=== PATIENT | male | born 1980 | race Caucasian/White ===

== ENCOUNTER 2020-10-03 10:24 | Emergency (ER) | payer BC | END 2020-10-03 12:44 | disposition home or self-care (01) | LOC: JVIRT 10:24 | DX: Z11.52 Encounter for screening for COVID-19 (principal) | CPT/HCPCS: C9803; G2251-GT; U0003 ==

== ENCOUNTER 2021-01-20 08:09 | Emergency (ER) | payer BC ==
[2021-01-20 08:23] VITALS: BP 125/94; PULSE 105; TEMP 98; BMI 33.0
[2021-01-20] MEDS ORDERED: DIPHTH,PERTUSS(ACELL),TET 0.5 ML DISP.SYRIN IM ONE ×2 (08:26→08:27)
== END 2021-01-20 08:45 | disposition home or self-care (01) ==
LOC: FER 08:09
PROC: 3E0234Z Introduction of Serum, Toxoid and Vaccine into Muscle, Percutaneous Approach (ICD-10-PCS; principal; 2021-01-20)
DX: S61.209A Unspecified open wound of unspecified finger without damage to nail, initial encounter (principal)
CPT/HCPCS: 90715; 99284-25

== ENCOUNTER 2021-03-16 11:17 | Emergency (ER) | payer BC ==
[2021-03-16 11:29] VITALS: BP 127/93; PULSE 108; TEMP 99; BMI 33.0
== END 2021-03-16 12:19 | disposition home or self-care (01) ==
LOC: FER 11:17
PROC: 0HQGXZZ Repair Left Hand Skin, External Approach (ICD-10-PCS; principal; 2021-03-16)
DX: S61.211A Laceration without foreign body of left index finger without damage to nail, initial encounter (principal)
CPT/HCPCS: 99282-25

== ENCOUNTER 2021-03-23 12:55 | Emergency (ER) | payer BC ==
[2021-03-23 13:17] VITALS: BP 122/80; PULSE 73; TEMP 98.8; BMI 32.7
== END 2021-03-23 13:34 | disposition home or self-care (01) ==
LOC: FER 12:55
DX: Z48.02 Encounter for removal of sutures (principal)
CPT/HCPCS: 99281-25

== ENCOUNTER 2021-06-26 19:17 | Emergency (ER) | payer BC ==
[2021-06-26 19:32] VITALS: TEMP 98.5; BMI 32.3
[2021-06-26 20:26] LABS: BASO % 1.7 % (0-2.0); EOS % 5.1 % (0-4.5); HEMOGLOBIN 14.4 GM/dl (11.7-16.9); LYMPH % 38.4 % (8-40); MCH 30.5 pg (25.7-33.7); MCHC 34.2 g/dl (32.0-35.9); MEAN CELL VOLUME 89.1 fl (80-96); MEAN PLT VOLUME 8.2 fl (7.5-11.1); MONO % 12.8 % (3.8-10.2); PLATELET COUNT 201 10^3/uL (134-434); RBC 4.72 M/mm3 (4.00-5.60); RDW 12.3 % (11.9-15.9); WHITE BLOOD COUNT 4.5 K/mm3 (4.0-10.8)
[2021-06-26 20:40] LABS: ALBUMIN 3.8 g/dl (3.4-5.0); BILIRUBIN,TOTAL 0.7 mg/dl (0.2-1); CALCIUM 8.7 mg/dl (8.5-10); TOT PROT 7.1 g/dl (6.4-8.2)
[2021-06-26 21:02] VITALS: BP 114/79; PULSE 82
[2021-06-26] MEDS ORDERED: valACYclovir HCL 1000 MG TABLET PO ONE (21:13)
[2021-06-26] MEDS ORDERED: predniSONE 20 MG TABLET (UD) PO ONE (21:13)
[2021-06-26] MEDS ORDERED: valACYclovir HCL 500 MG TABLET (FP) ONE (21:28)
[2021-06-26] MEDS ORDERED: predniSONE 20 MG TABLET (UD) ONE (21:30)
== END 2021-06-26 21:39 | disposition home or self-care (01) ==
LOC: FER 19:17
DX: G51.0 Bell's palsy (principal)
CPT/HCPCS: 36415; 70450-TC; 80053; 85025; 86618; 99284-25